=== PATIENT | female | born 1940 | race Two or more races ===

== ENCOUNTER 2020-10-15 13:31 | Outpatient (REF) | payer MEDICAID, SELFPAY ==
--- NOTE | 2020-10-16 10:34 | MHC.AU.AHA ---
Adult Audiological Evaluation Date of Visit: 10/15/20 Pizza Baker Used: Declined by Patient Reason for Appointment: History of hearing loss. Patient suspects there has been a decrease in hearing since her last evaluation on 11/27/2018. Previous Hearing Test Results: At this clinic on 11/27/2018- Right: Mild sloping to severe sensorineural hearing loss. Left: Mild sloping to profound sensorineural hearing loss. Ear History: Recent Ear Drainage: None Reported Recent Ear Infections: None Reported History of Ear Wax Buildup: None Reported Hearing Instrument History- Right Ear: Hospitality Aide: Innoviti Model: Guardian [employer] Productseo B50-R Serial Number: [id number] Battery Size: Rechargeable Repair Warranty: 04/10/2018 Loss and Damage Warranty: 04/10/2018 Dispensed By: [facility] Date of Fittin01/15/2016 Hearing Instrument History- Left Ear: Hospitality Aide: Innoviti Model: [employer] Productseo B50-R Serial Number: [id number] Battery Size: Rechargeable Warranty: 04/10/2018 Loss and Damage Warranty: 04/10/2018 Dispensed By: [facility] Date of Fittin01/15/2016 Otoscopy: Right Ear: Unremarkable Left Ear: Unremarkable Tympanometry: Tympanometry performed due to: To assess integrity of the middle ear system Right Ear: Normal Middle Ear System (Type A) Left Ear: Hypercompliant Middle Ear System (Type Ad) Hearing Evaluation: Transducer(s) Used: Insert Earphones, Circumaural Headphones Method: Conventional Audiometry Stimuli Used: Pure Tones Right Ear: Description of Hearing: Mild sloping to severe sensorineural hearing loss Left Ear: Description of Hearing: Mild sloping to profound sensorineural hearing loss Speech Recognition Threshold (SRT): Method Used: Recorded Lists Right Ear: 40 dBHL Left Ear: 55 dBHL Word Discrimination: Method: Recorded Lists Word Lists Used: Lista Bisil?bica (Albanian) Right Ear: 96% at 80 dBHL Left Ear: 88% at 95 dBHL Comparison: Compared to the most recent evaluation: Thresholds have decreased bilaterally. Recommendations: Audiological re-evaluation in one year. Hearing aid maintenance performed today. Hearing aid(s) reprogrammed with updated test results. Patient is eligible for new amplification after 01/15/2016. Patient is considering trying a different style, as she finds the ITC style may be easier to use. A hearing aid evaluation was scheduled in December 2020. Diagnosis: Primary Diagnosis: H90.3 Bilateral Sensorineural Hearing Loss Services Performed: Comprehensive Audiological Evaluation (CPT 75577), Tympanometry (CPT 76052) Signature: Provider: Petrona Hsieh, CCC-A
== END 2020-10-15 13:32 | disposition home or self-care (01) ==
LOC: HO.SH 13:31
PROVIDERS: Visit Provider Physician Assistant Medical
DX: H90.3 Sensorineural hearing loss, bilateral (principal)
CPT/HCPCS: 92557; 92567

== ENCOUNTER → 2020-10-30 13:15 | Outpatient (BNVA) | payer MEDICAID, SELFPAY | PROVIDERS: Visit Provider Internal Medicine Cardiovascular Disease | DX: R07.2 Precordial pain (principal); I51.7 Cardiomegaly; I48.0 Paroxysmal atrial fibrillation; I10 Essential (primary) hypertension | CPT/HCPCS: 93005; 99202 ==

== ENCOUNTER → 2020-11-06 07:20 | Outpatient (REF) | payer MEDICAID, SELFPAY ==
--- NOTE | ~2020-11-06 | NM_ITS ---
Lexiscan Myocardial perfusion study Indication: Chest discomfort, assess for coronary disease and ischemia Technique: The patient was brought in for a Lexiscan perfusion study on 11/06/2020 and was injected 0.4 mg of Lexiscan intravenously. Within a minute of this injection 25 mCi of sestamibi was given intravenously. Images were obtained using the SPECT gamma camera interlaced with the gating device. Images were obtained in supine position. Resting perfusion study was performed on 11/07/2020. Patient was administered 25 mCi of sestamibi intravenously at rest. Images were then obtained in supine position. Total DLP 106mGy-cm. Images were processed with the software and compared side to side in short axis, horizontal long axis and vertical long axis views. Findings: Raw acquisition was reviewed. The stress perfusion study showed no significant perfusion abnormality. Gated study shows normal LV systolic function with calculated LVEF of > 70%%. LV cavity is normal in size. The gated study shows normal wall thickening and contraction of segments. Resting study shows no significant perfusion abnormality. Gating at rest reveals normal wall motion with ejection fraction at >70%. The findings are consistent with no reversible or fixed perfusion abnormality. NM/NM ganesh perf SPECT rest & str Impression: 1. Myocardial perfusion imaging study shows normal myocardial perfusion. No evidence of any ischemia or infarction. 2. Gated LVEF is > 70% during stress and rest. 3. Transient ischemic dilatation not present. EKG component of the test reported separately.
--- NOTE | 2020-11-06 07:26 | CA_ITS ---
Acquisition Time: 2020-11-06 08:08:55 Total Exercise Time: 00:02:00 Test Indications: PRECORDIAL PAIN Medications: VERAPAMIL ASA HCTZ Protocol: LEXISCAN Max HR: 073 BPM 51% of Pred: 142 BPM Max BP: 140/060 mmHG Max Work Load: 1.6 METS Pharmacological stress test with Lexiscan injection while walking on treadmill, without anginal symptoms, without noted arrythmia, with normotensive response to injection, with significant artifact during walking, with nondiagnostic EKG for ischemia. In recovery she reported abdominal discomfort and lightheadedness which was treated with Aminophylline 75mg IVP and 4 oz caffinated cola to reverse Lexiscan with resolution of symptoms. Nuclear images pending. Test reviewed with Dr Nicholas. Referred By: Martin De La Torre Overread By: SHAY HODGE
== END ==
LOC: HO.CARD 07:20
PROVIDERS: Visit Provider Internal Medicine Cardiovascular Disease
DX: R07.2 Precordial pain (principal)
CPT/HCPCS: 78452; 93017; A9500; J0280; J2785

== ENCOUNTER → 2020-11-07 11:18 | Outpatient (REF) | payer MEDICAID, SELFPAY ==
--- NOTE | 2020-11-07 11:22 | CA_ITS ---
Transthoracic Echocardiogram Patient (Last, First, Middle): Mai Garcia, Gender: Female Date of : 1940 Age: 79 Procedure Date: 11/07/2020 Procedure Type: Transthoracic Echocardiogram Location: OP Height: 154.94 cm Weight: 66. kg BSA: 1.65 m2 Heart Rate: bpm BP: 128 / 58 mmHg Investigative Shopper: Referring MD: Martin De La Torre MD Symptoms: I51.7 - Cardiomegaly Study Quality: Fair ECG Rhythm: Sinus Conclusions: - The left ventricular systolic function is normal. The visually estimated ejection fraction is >70%. - There is mild calcification of the aortic valve. - There is mild mitral valve regurgitation. Findings Left Ventricle Normal left ventricular cavity size. There is normal left ventricular wall thickness. The left ventricular systolic function is normal. The visually estimated ejection fraction is >70%. There is no evidence of regional wall motion abnormalities. Diastolic function is normal for age. Right Ventricle Normal right ventricular cavity size and systolic function. Atria The left atrium is normal in size. The right atrium is normal in size. Aortic Valve There is a normal trileaflet aortic valve. There is mild calcification of the aortic valve. There is no aortic valve stenosis. There is no aortic valve regurgitation. Mitral Valve The mitral valve appears normal. There is mild mitral valve regurgitation. There is no mitral valve stenosis. Pulmonic Valve The pulmonic valve was not well visualized. Tricuspid Valve The tricuspid valve was not well visualized. There is trace tricuspid valve regurgitation. The pulmonary artery systolic pressure is normal. Great Vessels The aortic annulus, sinuses of valsalva, asc aorta, and aortic arch are normal in size. Venous The inferior vena cava is normal in size and collapses greater than 50% with inspiration. Pericardium/Pleural There is no evidence of pericardial effusion. Prior Study Comparison No prior study available for comparison. Measurements 2D Linear Measurements RVIDd: 2.89 RVIDd Index: 1.75 IVSd: 0.92 0.6-0.9/0.6-1.0 cm LVIDd: 4.75 3.9-5.3/4.2-5.9 cm LVIDd Index: 2.88 2.4-3.2/2.2-3.1 cm/m2 LVIDs: 2.92 2.0-3.6 cm LVPWd: 1.08 0.7-1.1 cm Ao Root: 2.50 2.1-3.5 cm LA Diam: 3.80 2.7-3.8/3.0-4.0 cm LAIDs Index: 2.30 1.5-2.3 cm/m2 LV Mass: 208.11 67-162/88-224 g LV Mass Index: 126.12 43-95/49-115 g/m2 LVOT Diam: 2.00 3.0+(-)1.3 cm 2D Systolic Function EF 4C: 70.40 >55% EF 2C: 79.30 >55% EF BiP: 75.60 >55% Mitral Valve MV Pk E: 1.02 MV PK A: 0.96 MV Decel Time: 271.00 E/A: 1.10 E'Lateral: 4.57 E'Medial: 4.24 E/E' Med: 24.10 E/E' Lat: 22.30 Aortic Valve AoV Pk Cuauhtemoc: 1.70 AoV Mn Cuauhtemoc: 1.19 AoV VTI: 0.42 AoV Pk Grad: 12.00 Aov Mn Grad: 7.00 JIN Cont.VTI: 2.60 LVOT LVOT Pk Cuauhtemoc: 1.45 LVOT Mn Cuuahtemoc: 0.93 LVOT VTI: 0.35 LVOT Pk Grad: 8.00 LVOT Mn Grad: 4.00 LVOT Diam: 2.00 LVOT Area: 3.14 Diastolic Function MV Pk E: 1.02 MV Pk A: 0.96 E/A: 1.10 E'Medial: 4.24 E/E' Med: 24.10 E' Laterial: 4.57 E/E' Lat: 22.30 Tricuspid Valve TR Pk Cuauhtemoc: 2.64 TR Pk Grad: 28.00 RA Press: 3.00 RVSP: 31.00 Great Vessels Aorta Ao Root-2D: 2.50 2.0-3.7 cm Ao Asc: 3.00 2.1-3.4 cm Ao Arch: 2.80 Updated in Other Vendor System with Status of Final Osman Nicholas MD electronically signed on 11/08/2020 1:56:12 PM with status of Final
== END ==
LOC: HO.CARD 11:18
PROVIDERS: Visit Provider Internal Medicine Cardiovascular Disease
DX: I51.7 Cardiomegaly (principal)
CPT/HCPCS: 93306

== ENCOUNTER → 2020-11-13 15:14 | Outpatient (BNVA) | payer MEDICAID, SELFPAY | PROVIDERS: PCP Internal Medicine; Referring Provider Internal Medicine; Visit Provider Internal Medicine Cardiovascular Disease | DX: I48.0 Paroxysmal atrial fibrillation (principal); I10 Essential (primary) hypertension; R07.2 Precordial pain | CPT/HCPCS: 99212 ==

== ENCOUNTER 2021-01-26 15:20 | Outpatient (REF) | payer MEDICAID, SELFPAY ==
--- NOTE | 2021-01-26 15:52 | MHC.AU.MED ---
Medical Clearance for Hearing Instrumentation Date: 01/26/21 Patient Name: Mai Garcia Date of : 1940 Primary Care Provider: Referring Provider: Lesa Major MD We have seen your patient on 01/26/21 and have determined that they are a candidate for amplification (See accompanying report). Specifically, they would benefit from: Hearing aid use in both ears There is a statute that addresses Medical Evaluation Requirements prior to fitting a patient with a hearing aid. According to [place] statute 265 CMR:6.03(1), (a) General. Except as provided in 265 CMR 6.03(1)(b), a instrumentation tech shall not sell a hearing aid unless the prospective user has presented to the instrumentation tech a written statement signed by a licensed physician that states that the patient's hearing loss has been medically evaluated and the patient may be considered a candidate for a hearing aid. The medical evaluation must have taken place within the preceding six months. Please note: Due to the [place] Statute referenced above, we cannot accept a signature other than that of a licensed physician. GRATED CHEESE MAKER and PA signatures cannot be accepted. I am in agreement with the above recommendation. There is no medical contraindication for hearing instrumentation. Physician Signature Date Physician Name (Printed)
--- NOTE | 2021-01-26 16:58 | MHC.AU.HAS ---
Hearing Aid Evaluation Date of Visit: 01/26/21 Historical Information: Description of Hearing: Right ear- Mild to severe SNHL; Left ear- Mild to profound SNHL Current personal amplification information, if applicable: Jovita Davis B50-R Summary: Ms Garcia is due for updated amplification. New hearing aids are recommended to help facilitate improved communication. She notes that she has had a lot of difficulties with the FLORENCIA style hearing aids and would like to try a rechargeable ITC hearing aid. Hearing Aid Prescription: Based on the individual?s shared listening needs, communication environments, dexterity, desire for connectivity, and personal preferences, the following prescription for amplification has been made: Right ear: Dog Boarder: Major Aide Model: Evolv AI 1600 ITC-R Battery Size: Rechargeable Color: Barney Left ear: Left ear prescription to be same as Right Hearing Aid above: Dog Boarder: Valeriy Model: Evolv AI 1600 ITC-R Battery Size: Rechargeable Color: Barney Plan of Care: Earmold Impressions Taken. Medical Clearance to be requested from PCP/ENT Once MD clearance is obtained, hearing aids will be ordered. Earmold impressions in the hold drawer. Once hearing aids are in, will call patient to schedule fitting. Primary Diagnosis: H90.3 Bilateral Sensorineural Hearing Loss Signature: Provider: Petrona Michaels, CCC-A
== END 2021-01-26 15:21 | disposition home or self-care (01) ==
LOC: HO.HAP 15:20
PROVIDERS: Visit Provider Internal Medicine
DX: Z46.1 Encounter for fitting and adjustment of hearing aid (principal); H90.3 Sensorineural hearing loss, bilateral
CPT/HCPCS: 92591; V5275

== ENCOUNTER 2021-03-03 15:10 | Outpatient (REF) | payer MEDICAID, SELFPAY | END 2021-03-03 15:11 | disposition home or self-care (01) | LOC: HO.HAP 15:10 | PROVIDERS: Visit Provider Internal Medicine | DX: Z46.1 Encounter for fitting and adjustment of hearing aid (principal); H90.3 Sensorineural hearing loss, bilateral | CPT/HCPCS: V5011; V5020; V5160; V5260 ==

== ENCOUNTER 2021-03-11 15:10 | Outpatient (REF) | payer MEDICAID, SELFPAY | END 2021-03-11 15:11 | disposition home or self-care (01) | LOC: HO.HAP 15:10 | PROVIDERS: Visit Provider Internal Medicine | DX: Z13.89 Encounter for screening for other disorder (principal) ==

== ENCOUNTER → 2022-01-27 13:10 | Outpatient (BNVA) | payer MEDICAID, SELFPAY | PROVIDERS: PCP Internal Medicine; Referring Provider Internal Medicine; Visit Provider Nurse Practitioner Family | DX: I48.0 Paroxysmal atrial fibrillation (principal); R00.1 Bradycardia, unspecified; I10 Essential (primary) hypertension; R07.2 Precordial pain | CPT/HCPCS: 93005; 99212 ==

== ENCOUNTER → 2022-02-03 07:38 | Outpatient (REF) | payer MEDICAID, SELFPAY ==
--- NOTE | 2022-02-03 07:44 | CA_ITS ---
Acquisition Time: 2022-02-03 08:08:03 Total Exercise Time: 00:06:02 Test Indications: AFIB Medications: SEE CHART Protocol: CAROLINE Max HR: 093 BPM 66% of Pred: 140 BPM Max BP: 128/068 mmHG Max Work Load: 7.0 METS Exercise stress test with exercise 6 min 2 sec of Caroline protocol, with fatigue, mild sob and request to stop, no chest discomfort, with isolated PACs, with starting pulse 46 ( 32% MPHR) and max pulse 93 ( 66 % MPHR), with starting BP 118/60 and max BP 128/60, with nondiagnostic EKG for ischemia. Test teviewed with Dr De La Torre Referred By: Marlene Mcdaniel Overread By: MARLENE MCDANIEL
== END ==
LOC: HO.CARD 07:38
PROVIDERS: PCP Internal Medicine; Visit Provider Nurse Practitioner Family
DX: R00.1 Bradycardia, unspecified (principal); I48.0 Paroxysmal atrial fibrillation
CPT/HCPCS: 93017; 93225; 93242

== ENCOUNTER → 2022-02-10 | Outpatient (REF) | payer MEDICAID, SELFPAY ==
--- NOTE | 2022-02-10 15:11 | HM_ITS ---
* Total monitoring time 2 days and 23 hours. * Underlying rhythm is sinus. Average rate 49/Min. Range 38 to 77/Min. * About 82% of the time, rate less than 60/Min. * Rare supraventricular ectopy. * Extremely rare ventricular ectopy. * No significant pauses or AV blocks. * No diary submitted. MTDD
== END ==
LOC: HO.CARD
PROVIDERS: PCP Internal Medicine; Visit Provider Nurse Practitioner Family
DX: I48.0 Paroxysmal atrial fibrillation (principal); R00.1 Bradycardia, unspecified
CPT/HCPCS: 93242

== ENCOUNTER 2022-03-11 15:30 | Outpatient (REF) | payer MEDICAID, SELFPAY ==
--- NOTE | 2022-03-11 16:49 | MHC.AU.HFU ---
Hearing Instrument Follow-Up- Binaural Date of Visit: 03/11/22 Right Ear: Valeriy Wasserman AI 1600 ITC-R SN: [id number] Color: Mayfair Repair Warranty: 03/26/2024 Loss and Damage Warranty: 03/26/2024 Service Plan: 03/03/2022 Battery Size: Rechargeable Type of Wax Guard: HearClear Dispensed By: [facility] Date of Fittin03/03/2021 Left Ear: Valeriy Wasserman AI 1600 ITC-R SN: [id number] Color: Mayfair Repair Warranty: 03/26/2024 Loss and Damage Warranty: 03/26/2024 Service Plan: 03/03/2022 Battery Size: Rechargeable Type of Wax Guard: HearClear Dispensed By: [facility] Date of Fittin03/03/2021 Follow-Up Summary: Mai reported her hearing aids were not working. Both wax guards and vents plugged with wax. Right hearing aid missing microphone cover. Cleaned hearing aids, replaced microphone covers and wax guards. A listening check demonstrated that the hearing aids are in good working order. Otoscopy clear, bilaterally. Encouraged more consistent use as Mai reported she tends to only wear the hearing aids at home. She is reportedly nervous to lose them. Advised that hearing aids should not just fall out of her ears and if there are issues with retention or fit/comfort, they can be addressed. Mai reported no issues at this time as they do not usually fall out and she will try to wear them more often. Recommendations: Hearing instrument maintenance in 6 months, or sooner if needed. Patient will call if problems persist. Recommendations (Other): Updated audiological evaluation. Mai will request a doctor's order for a hearing test from her PCP. Diagnosis Code(s): Primary Diagnosis: H90.3 Bilateral Sensorineural Hearing Loss Signature: Provider: Jagdeep Temple, [facility]
== END 2022-03-11 15:31 | disposition home or self-care (01) ==
LOC: HO.HAP 15:30
PROVIDERS: Visit Provider Internal Medicine
DX: Z46.1 Encounter for fitting and adjustment of hearing aid (principal); H90.3 Sensorineural hearing loss, bilateral
CPT/HCPCS: 92593

== ENCOUNTER → 2022-03-16 15:14 | Outpatient (BNVA) | payer MEDICAID, SELFPAY | PROVIDERS: PCP Internal Medicine; Referring Provider Internal Medicine; Visit Provider Internal Medicine Cardiovascular Disease | DX: I48.0 Paroxysmal atrial fibrillation (principal); I10 Essential (primary) hypertension; R00.1 Bradycardia, unspecified | CPT/HCPCS: 99212 ==